=== PATIENT | female | born 1960 | race American Indian/Alaskan Native ===

== ENCOUNTER 2017-12-02 10:01 | Outpatient (CLI) | payer MEDICAID ==
--- NOTE | 2017-12-02 15:41 | Mammography Report ---
BILATERAL DIGITAL SCREENING MAMMOGRAM with CAD: 12/02/17 10:01:00 CLINICAL: Routine screening. COMPARISON: None available. FINDINGS: There are bilateral scattered areas of fibroglandular density.No mass, architectural distortion or suspicious calcifications. IMPRESSION: No mammographic evidence of malignancy. BI-RADS CATEGORY: 1 -- Negative RECOMMENDATION: Routine mammographic screening in one year. COMMENT: Patient follow-up letters are generated by our [employer] application.
== END 2017-12-02 10:02 | disposition home or self-care (01) ==
LOC: SPVWC 10:01
PROVIDERS: ATTEND Family Medicine
DX: Z12.31 Encounter for screening mammogram for malignant neoplasm of breast (principal)
CPT/HCPCS: 77067

== ENCOUNTER 2018-03-04 06:13 | Day surgery (SDC) | payer MEDICARE ==
--- NOTE | 2018-03-04 07:38 | Short Stay Summary ---
Short Stay Documentation Date of service: 03/04/18 Narrative H&P: 58y/o with postmenopausal bleeding. An endometrial biopsy was attempted in the office but was unsuccessful secondary to a stenotic os. Ultrasound revealed findings of thickened endometrial stripe of 9.9mm. - History Principal diagnosis: Postmenopausal bleeding Past Medical History: hyperlipidemia Past Surgical History: Other (tubal ligation) Social history: - Allergies and Medications Current Medications: Allergies No Known Allergies Allergy (Unverified 03/03/18 10:34) Home Medications Medication Instructions Recorded Confirmed Last Taken Type Aspirin [Aspirin EC] 81 mg PO DAILY 03/03/18 03/03/18 Unknown History Cyclobenzaprine [Flexeril] 10 mg PO TID 03/03/18 03/03/18 Unknown History Folic Acid [Folvite] 1 mg PO QDAY 03/03/18 03/03/18 Unknown History Ibuprofen [Motrin] 800 mg PO Q8HR PRN 03/03/18 03/03/18 Unknown History Bowie-3 Fatty Acids [Bowie-3] 1,000 mg PO DAILY 03/03/18 03/03/18 Unknown History Omeprazole 40 mg PO DAILY 03/03/18 03/03/18 Unknown History - Physical exam General appearance: no acute distress Integumentary: no rash HEENT: Atraumatic Lungs: Clear to auscultation Breasts: deferred Heart: Regular rate Gastrointestinal: normal Female Genitourinary: deferred Rectal Exam: deferred - Brief post op/procedure progress note Date of procedure: 03/04/18 Pre-op diagnosis: postmenopausal bleeding Post-op diagnosis: same Procedure: Dilatation and curettage Hysteroscopy Anesthesia: GETA Surgeon: RONDA CARRILLO Estimated blood loss: minimal Pathology: list (endometrial curettings) Specimen disposition: to lab Condition: stable - Hospital course Hospital course: The patient was admitted the day of surgery underwent a hysteroscopy and dilatation and curettage. Please see operative note for details of surgery. Postoperative course was uneventful. - Disposition Condition at discharge: Good Disposition: DC-01 TO HOME OR SELFCARE Short Stay Discharge Plan Activity: other (pelvic rest for 1 week) Diet: regular Additional Instructions: Scheduled follow-up with Dr. Carrillo in 2 weeks Prescriptions: Ibuprofen [Motrin] 800 mg PO Q8HR PRN #60 tablet PRN Reason: Pain, Mild (1-3) oxyCODONE /ACETAMINOPHEN [Percocet 5/325] 1 tab PO Q6HR PRN #30 tablet PRN Reason: Pain
[2018-03-04] MEDS ORDERED: TORADOL IV PRN (07:50)
[2018-03-04] MEDS ORDERED: ZOFRAN IV PRN (07:50)
--- NOTE | 2018-03-04 07:51 | Anesthesia Day of Surgery ---
Anesthesia Day of Surgery - Day of Surgery Patient Examined: Yes Patient H&P Reviewed: Yes Patient is NPO: Yes
--- NOTE | 2018-03-04 07:52 | Anesthesia Consultation ---
Anesthesia Consult and Med Hx Date of service: 03/04/18 - Airway Anesthetic Teeth Evaluation: Good ROM Head & Neck: Adequate Mental/Hyoid Distance: Adequate Mallampati Class: Class II Intubation Access Assessment: Probably Good - Pulmonary Exam CTA: Yes - Cardiac Exam Cardiac Exam: RRR - Pre-Operative Health Status ASA Pre-Surgery Classification: ASA2 Proposed Anesthetic Plan: General (GA with LMA, GERD controlled, Pepcid in preop , hx of tob abuse) - Pulmonary Hx Smoking: Yes Hx Asthma: Yes (Have not been treated for a few years) - Central Nervous System Hx Psychiatric Problems: No - Hematic Hx Sickle Cell Disease: Yes (Trait only) - Other Systems Hx Alcohol Use: Yes (Recovered x 15 yrs) Hx Cancer: No
[2018-03-04] MEDS ORDERED: XYLOCAINE MPF 2% ONE (07:57)
[2018-03-04] MEDS ORDERED: SUBLIMAZE ONE (07:58)
[2018-03-04] MEDS ORDERED: DIPRIVAN 10 MG/ML IV ONE (07:58)
[2018-03-04] MEDS ORDERED: LACTATED RINGERS 1,000 ML IV SCH (08:00)
[2018-03-04] MEDS ORDERED: PEPCID IV NR (08:00)
[2018-03-04] MEDS ORDERED: VERSED IV NR (08:00)
[2018-03-04] MEDS ORDERED: ZOFRAN ONE (08:26)
[2018-03-04] MEDS ORDERED: DECADRON ONE (08:26)
[2018-03-04] MEDS ORDERED: TORADOL ONE (09:16)
[2018-03-04] MEDS: DILAUDID IV PRN ×2 (09:23→09:33)
--- NOTE | 2018-03-04 09:25 | Operative Report ---
Operative Report Operative Report: Date of procedure: 03/04/2018 Pre-operative diagnosis: Postmenopausal bleeding; stenotic cervical os Post-operative diagnosis: Same as above Procedure name(s): Hysteroscopy; dilatation and curettage Surgeon: Bailee Boyd M.D. Improvement Analyst: None Anesthesia: General endotracheal anesthesia Findings atrophic endometrium; no cavitary lesions; uterine perforation Indication: 58-year-old with a history of postmenopausal bleeding. Patient also has findings of the stenotic cervical os and was unable to perform endometrial biopsy in the office. Procedure The patient was taken to the operating room and given general tracheal anesthesia without complication. The patient was prepped and draped in a normal sterile fashion. A bivalve speculum was placed in the patient's vagina single-tooth tenaculums placed on the anterior lip of the cervix. The cervical os was stenotic. Graduated dilators had to be used in order to dilate the cervix.. A uterine sound was inserted. The hysteroscope was then placed. Insufflation of the uterine cavity was performed with normal saline. Gen. survey of the uterine cavity revealed an atrophic endometrium without evidence of any cavitary lesions. There was noted to be finding because of a small uterine perforation at the fundus of the uterus that was not actively bleeding.. The hysteroscope was then removed. The curette was inserted through the dilated os and a sharp curettage of the endometrial surface was performed. The tissue was sent to pathology for evaluation. The remainder of the vaginal instruments were then removed atraumatically. The patient was then successfully extubated taken to the recovery room. All sponge laps and needle counts were correct 2.
[2018-03-04 17:13] VITALS: BP 133/89
== END 2018-03-04 11:18 | disposition home or self-care (01) ==
LOC: OR 06:13
PROVIDERS: ATTEND Obstetrics & Gynecology
DX: N88.2 Stricture and stenosis of cervix uteri (principal); K21.9 Gastro-esophageal reflux disease without esophagitis; N87.9 Dysplasia of cervix uteri, unspecified; D57.1 Sickle-cell disease without crisis; E78.5 Hyperlipidemia, unspecified; J45.909 Unspecified asthma, uncomplicated; G43.909 Migraine, unspecified, not intractable, without status migrainosus; M19.90 Unspecified osteoarthritis, unspecified site; F17.200 Nicotine dependence, unspecified, uncomplicated; Z98.890 Other specified postprocedural states; Z72.89 Other problems related to lifestyle; Z79.899 Other long term (current) drug therapy; Z79.82 Long term (current) use of aspirin; Z98.51 Tubal ligation status
CPT/HCPCS: 58558; 82962; 88305; J1100; J1170; J1885; J2250; J2405; J2704; J3010; J7120

== ENCOUNTER 2019-01-16 20:20 | Emergency (ER) | payer MEDICARE ==
--- NOTE | 2019-01-16 20:31 | Emergency Department Report ---
ED Abdominal Pain HPI - General Stated Complaint: Abdominal Pain Time Seen by Provider: 01/16/19 20:27 - History of Present Illness Initial Comments: 58 yo F presents to ED with complaint of abdominal pain. Patient states pain is located in the right lower quadrant, just beside her umbilicus, radiating up the flank. Patient reports fever, urinary frequency. Patient states nausea, no vomiting or diarrhea. Reports constipation. Patient states pain began last night. MD Complaint: abdominal pain -: Last night Location: RLQ Radiation: R flank Migration to: no migration Severity: moderate Quality: cramping, sharp Consistency: intermittent Improves With: nothing Worsens With: nothing Associated Symptoms: fever, constipation. denies: nausea, vomiting, diarrhea, dysuria - Related Data Home Medications Medication Instructions Recorded Confirmed Last Taken Aspirin [Aspirin EC] 81 mg PO DAILY 03/03/18 03/03/18 Unknown Cyclobenzaprine [Flexeril] 10 mg PO TID 03/03/18 03/03/18 Unknown Folic Acid [Folvite] 1 mg PO QDAY 03/03/18 03/03/18 Unknown Ibuprofen [Motrin] 800 mg PO Q8HR PRN 03/03/18 03/03/18 Unknown Estelline-3 Fatty Acids [Estelline-3] 1,000 mg PO DAILY 03/03/18 03/03/18 Unknown Omeprazole 40 mg PO DAILY 03/03/18 03/03/18 Unknown Previous Rx's Medication Instructions Recorded Last Taken Type Ibuprofen [Motrin] 800 mg PO Q8HR PRN #60 tablet 03/04/18 Unknown Rx oxyCODONE /ACETAMINOPHEN [Percocet 1 tab PO Q6HR PRN #30 tablet 03/04/18 Unknown Rx 5/325] Ciprofloxacin HCl [Ciprofloxacin 500 mg PO Q12HR 10 Days #20 tab 01/16/19 Unknown Rx TAB] Dicyclomine [Bentyl] 20 mg PO QID PRN #20 tablet 01/16/19 Unknown Rx metroNIDAZOLE [Flagyl] 500 mg PO Q12HR 10 Days #20 tab 01/16/19 Unknown Rx Allergies Allergy/AdvReac Type Severity Reaction Status Date / Time No Known Allergies Allergy Unverified 03/03/18 10:34 ED Review of Systems ROS: Stated complaint: CODE STEMI Other details as noted in HPI Comment: All other systems reviewed and negative Constitutional: chills, fever Gastrointestinal: abdominal pain, constipation. denies: nausea, vomiting, diarrhea Genitourinary: frequency. denies: dysuria, hematuria ED Past Medical Hx - Past Medical History Hx Diabetes: Yes ("Borderline" No treatment) Hx GERD: Yes Hx Sickle Cell Disease: Yes (Trait only) Hx Arthritis: Yes (shoulders, legs) Hx Headaches / Migraines: Yes (Migraines) Hx Asthma: Yes (Have not been treated for a few years) - Social History Smoking Status: Current Every Day Smoker - Medications Home Medications: Home Medications Medication Instructions Recorded Confirmed Last Taken Type Aspirin [Aspirin EC] 81 mg PO DAILY 03/03/18 03/03/18 Unknown History Cyclobenzaprine [Flexeril] 10 mg PO TID 03/03/18 03/03/18 Unknown History Folic Acid [Folvite] 1 mg PO QDAY 03/03/18 03/03/18 Unknown History Ibuprofen [Motrin] 800 mg PO Q8HR PRN 03/03/18 03/03/18 Unknown History Estelline-3 Fatty Acids [Estelline-3] 1,000 mg PO DAILY 03/03/18 03/03/18 Unknown History Omeprazole 40 mg PO DAILY 03/03/18 03/03/18 Unknown History Ibuprofen [Motrin] 800 mg PO Q8HR PRN #60 tablet 03/04/18 Unknown Rx oxyCODONE /ACETAMINOPHEN [Percocet 1 tab PO Q6HR PRN #30 tablet 03/04/18 Unknown Rx 5/325] Ciprofloxacin HCl [Ciprofloxacin 500 mg PO Q12HR 10 Days #20 tab 01/16/19 Unknown Rx TAB] Dicyclomine [Bentyl] 20 mg PO QID PRN #20 tablet 01/16/19 Unknown Rx metroNIDAZOLE [Flagyl] 500 mg PO Q12HR 10 Days #20 tab 01/16/19 Unknown Rx ED Physical Exam - General General appearance: alert, in no apparent distress - Head Head exam: Present: atraumatic, normocephalic - Eye Eye exam: Present: normal appearance - ENT ENT exam: Present: mucous membranes moist - Neck Neck exam: Present: normal inspection - Respiratory Respiratory exam: Present: normal lung sounds bilaterally. Absent: respiratory distress - Cardiovascular Cardiovascular Exam: Present: regular rate, normal rhythm - GI/Abdominal GI/Abdominal exam: Present: soft, tenderness (moderate RLQ tenderness). Absent: distended - Extremities Exam Extremities exam: Present: normal inspection - Back Exam Back exam: Present: CVA tenderness (R) - Neurological Exam Neurological exam: Present: alert, oriented X3 - Psychiatric Psychiatric exam: Present: normal affect, normal mood - Skin Skin exam: Present: warm, dry, intact, normal color ED Course Vital Signs 01/16/19 01/16/19 01/16/19 20:28 20:30 20:33 Temperature 97.9 F Pulse Rate 93 H 96 H 88 Respiratory 20 22 19 Rate Blood Pressure 142/85 147/86 O2 Sat by Pulse 99 99 97 Oximetry 01/16/19 01/16/19 01/16/19 20:38 20:46 21:00 Temperature Pulse Rate 80 78 Respiratory 18 14 22 Rate Blood Pressure 117/68 131/75 O2 Sat by Pulse 100 100 Oximetry 01/16/19 01/16/19 01/16/19 21:16 21:30 21:46 Temperature Pulse Rate 80 79 75 Respiratory 20 26 H 12 Rate Blood Pressure 137/72 134/71 134/71 O2 Sat by Pulse 99 97 99 Oximetry 01/16/19 22:00 Temperature Pulse Rate 80 Respiratory 24 Rate Blood Pressure 150/75 O2 Sat by Pulse 100 Oximetry ED Medical Decision Making - Lab Data Result diagrams: 01/16/19 20:30 01/16/19 20:30 - EKG Data -: EKG Interpreted by Me EKG shows normal: sinus rhythm, axis Rate: normal - EKG Data Interpretation: other (LBBB) - Radiology Data Radiology results: report reviewed, image reviewed - Medical Decision Making - RLQ pain - elevated WBCs - CT shows colitis, no abscess or free air - rx given for flagyl and cipro - GI f/u advised - Differential Diagnosis UTI, appendicitis, kidney stone Critical care attestation.: If time is entered above; I have spent that time in minutes in the direct care of this critically ill patient, excluding procedure time. ED Disposition Clinical Impression: Colitis Disposition: DC-01 TO HOME OR SELFCARE Is pt being admited?: No Condition: Stable Instructions: Abdominal Pain (ED) Prescriptions: Dicyclomine [Bentyl] 20 mg PO QID PRN #20 tablet PRN Reason: abdominal pain Ciprofloxacin HCl [Ciprofloxacin TAB] 500 mg PO Q12HR 10 Days #20 tab metroNIDAZOLE [Flagyl] 500 mg PO Q12HR 10 Days #20 tab Referrals: CARBUCCIA,DEEDEE, MD [Primary Care Provider] - 3-5 Days PRIMARY MD CARRIE [Referring] - 3-5 Days [facility] [Provider Group] - 3-5 Days Time of Disposition: 23:58
[2019-01-16] MEDS ORDERED: TORADOL IV ONE (20:36)
[2019-01-16 20:44] LABS: Basophils # (Auto) 0.1 K/mm3 (0.0-0.1); Basophils % (Auto) 0.9 % (0.0-1.8); Eosinophils # (Auto) 0.2 K/mm3 (0.0-0.4); Eosinophils % (Auto) 1.2 % (0.0-4.3); Hematocrit 37.4 % (30.3-42.9); Hemoglobin 12.6 gm/dl (10.1-14.3); Lymphocytes # (Auto) 3.9 K/mm3 (1.2-5.4); Lymphocytes % (Auto) 28.3 % (13.4-35.0); Mean Corpuscular HGB Conc 34 % (30-34); Mean Corpuscular Volume 80 fl (79-97); Monocytes % (Auto) 7.2 % (0.0-7.3); Platelet Count 313 K/mm3 (140-440); Red Blood Count 4.66 M/mm3 (3.65-5.03); Red Cell Distribution Width 14.9 % (13.2-15.2)
[2019-01-16 21:10] LABS: Albumin 3.8 g/dL (3.9-5); BUN/Creatinine Ratio 16; Blood Urea Nitrogen 13 mg/dL (7-17); Hemolysis Index 95
[2019-01-16 21:38] LABS: Alanine Aminotransferase 12 units/L (7-56)
[2019-01-16 21:41] LABS: Bacteria,Urine 1+ /HPF (Negative); Bilirubin,Urine NEG (Negative); Blood,Urine MOD (Negative); Color,Urine Yellow (Yellow); Mucus,Urine FEW /HPF; Protein,Urine <15 mg/dL mg/dL (Negative); Urobilinogen,Urine < 2.0 mg/dL (<2.0)
[2019-01-16 22:01] VITALS: BP 150/75
--- NOTE | 2019-01-16 23:35 | Cat Scan Report ---
PROCEDURE: CT ABDOMEN PELVIS W CON TECHNIQUE: Computerized axial tomography of the abdomen and pelvis was performed after the administr ation of IV iodinated nonionic contrast. CT DOSE LENGTH PRODUCT: 2882.6 mGycm HISTORY: RLQ pain COMPARISONS: None . FINDINGS: Visualized lower thorax: No significant abnormality. Liver: Normal size and attenuation. Spleen: Normal size and attenuation. Gallbladder and biliary system: The gallbladder is slightly distended. There is mild prominence of th e common bile duct. No stones are identified. Further evaluation with ultrasound may be of benefit.. Pancreas: Normal. Adrenals: Normal. Kidneys: Both kidneys have a normal size. No hydronephrosis. No renal stones . There is a subcentimet er cyst in the medial left renal cortex. GI tract: The stomach is normal. The small bowel has a normal caliber. No obstruction is seen. There is some bowel wall thickening involving terminal ileum and the cecum. The appendix appears normal. M ild colitis and possible terminal ileitis are suspected. Minimal diverticular change in the distal co paul.. Lymph nodes and mesentery: Slight stranding in the mesentery around the cecum.. Vasculature: Normal.. Bladder: Normal. Reproductive organs: No pelvic masses. Peritoneum: No free fluid. Musculoskeletal structures: No significant abnormality. Other: None. IMPRESSION: There is bowel wall thickening involving the terminal ileum as well as bowel wall thickening the cecu m and proximal ascending colon. Terminal ileitis and mild colitis are suspected. Slight streaking of the mesentery in the right lower quadrant is noted. Appendix has a normal size and appearance. Gallbladder is slightly distended. Slight prominence of the common bile duct. No stones are identifie d. Further evaluation with ultrasound may be of benefit.. This document is electronically signed by Belle Perez DO., January 16 2019 11:33:38 PM ET
[2019-01-16] MEDS ORDERED: BENTYL IM ONE (23:55)
== END 2019-01-17 00:23 | disposition home or self-care (01) ==
LOC: ED 20:20
DX: K52.9 Noninfective gastroenteritis and colitis, unspecified (principal); E11.9 Type 2 diabetes mellitus without complications; K21.9 Gastro-esophageal reflux disease without esophagitis; M19.90 Unspecified osteoarthritis, unspecified site; G43.909 Migraine, unspecified, not intractable, without status migrainosus; J45.909 Unspecified asthma, uncomplicated; F17.200 Nicotine dependence, unspecified, uncomplicated; Z79.82 Long term (current) use of aspirin; Z79.899 Other long term (current) drug therapy
CPT/HCPCS: 36415; 74177; 80053; 81001; 83690; 85025; 93005; 93010; 96374; 99284; J0500; J1885; Q9967